=== PATIENT | male | born 1990 | race African-American/Black ===

== ENCOUNTER 2020-01-09 21:54 | Emergency (ER) | payer SELFPAY ==
[~2020-01-09] VITALS: Ht 170.2 cm; Wt 81.8 kg
[2020-01-09] MEDS ORDERED: PERTUSS(ACELL),DIPH,TET VAC/PF 0.5 ML VIAL IM ONE (22:15)
[2020-01-09] MEDS ORDERED: LIDOCAINE 1% 10 ML VIAL INJ ONE (22:15)
[2020-01-09] MEDS ORDERED: ACETAMINOPHEN 500 MG TABLET PO ONE (22:15)
[2020-01-09 23:00] VITALS: BP 117/67
== END 2020-01-09 23:21 | disposition home or self-care (01) ==
LOC: EMS 21:57
DX: S61.511A Laceration without foreign body of right wrist, initial encounter (principal); W26.0XXA Contact with knife, initial encounter; Y93.89 Activity, other specified; Y92.89 Other specified places as the place of occurrence of the external cause; Y99.8 Other external cause status
CPT/HCPCS: 12001; 90471; 90715; 99283; J3490

== ENCOUNTER 2020-01-20 18:00 | Emergency (ER) | payer SELFPAY ==
[~2020-01-20] VITALS: Ht 170.2 cm; Wt 81.8 kg
[2020-01-20 18:05] VITALS: BP 104/67
== END 2020-01-20 18:31 | disposition home or self-care (01) ==
LOC: EMS 18:08
DX: S61.512D Laceration without foreign body of left wrist, subsequent encounter (principal); X58.XXXD Exposure to other specified factors, subsequent encounter
CPT/HCPCS: Z7502